=== PATIENT | female | born 1985 | race Caucasian/White ===

== ENCOUNTER 2016-10-25 16:25 | Inpatient (IN) | payer OTHER ==
[2016-10-25] MEDS ORDERED: TUBERCULIN PPD 5 TU/0.1ML SYRINGE (IN PATIENT USE ONLY) ID ONE (17:00)
[2016-10-25] MEDS ORDERED: DINOPROSTONE 10 MG VAGINAL SUPPOSITORY VG ONE (17:00)
[2016-10-25 17:31] VITALS: BMI 32.8
[2016-10-25] MEDS ORDERED: BUTORPHANOL TARTRATE 1 MG/ML VIAL IVPB ONE (18:09)
[2016-10-25] MEDS ORDERED: PROMETHAZINE HCL 25 MG/1 ML VIAL IVPUSH ONE (18:09)
--- NOTE | 2016-10-25 18:28 | HP ---
Past Medical History - Admission Chief Complaint: Here for labor induction. 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 Weeks Gestation by Dates: 39.1 ...EDC by Sono: 10/31/16 Infectious Disease: No: HIV, MRSA, STD's Psych: No: Bipolar, Depression - Past Surgical History Hx Myomectomy: No Hx Transabdominal Cerclage: No Additional Surgical History: lasik eye surgery - Smoking History Smoking history: Never smoked Have you smoked in the past 12 months: No - Alcohol/Substance Use Hx Alcohol Use: No - Social History Usual Living Arrangement: Yes: With Spouse ADL: Independent History of Recent Travel: No Home Medications - Allergies Allergies/Adverse Reactions: Allergies Allergy/AdvReac Type Severity Reaction Status Date / Time No Known Allergies Allergy Verified 10/25/16 16:43 - Home Medications Home Medications: Ambulatory Orders Vitamins (Sjr) - 1 tab PO DAILY 10/25/16 Review of Systems - Review of Systems Constitutional: reports: No Symptoms Eyes: reports: No Symptoms HENT: reports: No Symptoms Neck: reports: No Symptoms Cardiovascular: reports: No Symptoms Respiratory: reports: No Symptoms Gastrointestinal: reports: No Symptoms Genitourinary: reports: No Symptoms Breasts: reports: No Symptoms Reported Musculoskeletal: reports: No Symptoms Integumentary: reports: No Symptoms Neurological: reports: No Symptoms Endocrine: reports: No Symptoms Hematology/Lymphatic: reports: No Symptoms Psychiatric: reports: No Symptoms Physical Exam - Maternity Vital Signs: Vital Signs Temperature 98.7 F 10/25/16 17:10 Pulse Rate 112 H 10/25/16 17:10 Respiratory Rate 20 10/25/16 17:10 Blood Pressure 109/68 10/25/16 17:10 O2 Sat by Pulse Oximetry (%) Constitutional: Yes: Well Nourished, No Distress, Calm Eyes: Yes: Conjunctiva Clear, EOM Intact HENT: Yes: Atraumatic, Normocephalic Neck: Yes: Supple, Trachea Midline Cardiovascular: Yes: Regular Rate and Rhythm Lungs: Clear to auscultation - Abdominal Exam/OB Fundal Height: 39 Number of Fetuses: Single Presentation: Vertex Contractions: No Monitor Mode: External Heart Rate (range): 145 Category: I Accelerations: Uniform Decelerations: None - Vaginal Exam/OB Dilatation (cm): 0.5 Effacement (%): 70 Amniotic Membrane Status: Intact Presentation: Vertex/Position Station: -2 - Physical Exam Psychiatric: Yes: Alert, Oriented Hemorrhage Risk Assessment - Risk Factors Medium Risk Factors: Yes: None High Risk Factors: Yes: None Risk Score: 1 Risk Level: Medium Risk Problem List - Problems (1) Term Code(s): Z34.80 - ENCOUNTER FOR SUPRVSN OF NORMAL , UNSP TRIMESTER Assessment/Plan 31 y/o with SIUP at 39.1 weeks gestation here for elective labor induction - FHTS cat 1 - elective labor induction - cervidil placed at this time for cervical ripening. For re evaluation 12 hours for possible pitocin - GBS negative
[2016-10-25 18:48] LABS: BASOPHIL 0.4 % (0-2.0); EOSINOPHIL 0.7 % (0-4.5); MCH 28.7 pg (25.7-33.7); MCHC 32.9 g/dl (32.0-36.0); MEAN CELL VOLUME 87.3 fl (80-96); MEAN PLT VOLUME 10.1 fl (7.5-11.1); PLATELET COUNT 204 K/MM3 (134-434); RDW 13.6 % (11.6-15.6); WHITE BLOOD COUNT 13.7 K/mm3 (4.0-10.0)
[2016-10-25 19:11] LABS: ACTIVATED PTT 30.7 SECONDS (26.9-34.4)
[2016-10-25 19:20] LABS: CALCIUM 8.8 mg/dL (8.5-10.1); COCKROFT - GAULT 170.816; CREATININE 0.6 mg/dL (0.55-1.02)
[2016-10-26] MEDS ORDERED: OXYTOCIN 15 UNITS/ LR 250 ML 250 ML IVPB SCH ×2 (07:45→21:15)
[2016-10-26] MEDS ORDERED: DINOPROSTONE 10 MG VAGINAL SUPPOSITORY VG ONE (07:59)
--- NOTE | 2016-10-26 07:59 | PN ---
Ante-Partal Exam - Subjective Vital Signs: Vital Signs Temperature 98.3 F 10/26/16 04:00 Pulse Rate 99 H 10/26/16 06:00 Respiratory Rate 18 10/26/16 06:00 Blood Pressure 107/71 10/26/16 06:00 O2 Sat by Pulse Oximetry (%) Bleeding: No Headache: No Visual changes: No Right upper quadrant pain: No - Contractions Contractions: Yes Regularity: Irregular Intensity: Mild - Exam during Labor Heart Rate: 135 Variability: Moderate Category: I Monitor Accelerations: Present Monitor Decelerations: None Exam: Vaginal Dilatation (cm): 1 Effacement (%): 70 Amniotic Membrane Status: Intact Presentation: Vertex Station: -2 - Assessment/Plan Assessment/Plan: 31 y/o with SIUP at 39.2 weeks, elective labor induction - AFVSS - FHTS cat 1 - elective IOL, s/p cervidil overnight, minimal cervical change. Pt not feeling pain/contractions. Second cervidil placed this a.m. Will start pitocin this evening - GBS negative
[2016-10-26] MEDS ORDERED: DEXTROSE 5%-LACTATED RINGERS 1,000 ML IV ONE (23:15)
[2016-10-27] MEDS ORDERED: ELECTROLYTE-148 SOLN 1,000 ML IV SCH (08:00)
[2016-10-27] MEDS: PRENATAL VITAMINS W/ FOLIC ACID TABLET (FP) PO SCH (10:26)
[2016-10-27] MEDS ORDERED: FENTANYL/BUPIVACAINE/NS/PF - PCEA - 50 ML DISP.SYRIN EP SCH ×2 (11:00→11:02)
--- NOTE | 2016-10-27 13:26 | PN ---
Delivery - Delivery Vaginal Delivery: No Problems, Spontaneous Episiotomy/Laceration: 1st degree EBL (cc): 300 Delivery, Single - Stages of Labor Date of Delivery: 10/27/16 Time of Delivery: 13:06 Date Placenta Delivered: 10/27/16 Time Placenta Delivered: 13:14 Placenta: Yes: Spontaneous - Condition of Infant Temper Mill Roller/Log Buyer Present: No Gender: Male Position: Right, OA - 1 Minute Total Score: 9 5 Minutes Total Score: 9 - [place] Feeding Plan Initial Plan: Exclusive throughout hospitalization Remarks - Remarks Remarks: Uncomplicated of baby boy from DERREK position tight nuchal cord noted after delivery of head, clamped and cut at perineum anterior shoulder (left) delivered with ease along with posterior shoulder and remainder of placenta delivered with 3VC and in tact, spontaneously 1st degree laceration noted repaired with 2-0 chromic in usual fashion EBL 300cc sponge count correct after delivery baby stable and to well baby nursery mom stable
[2016-10-27] MEDS ORDERED: BISACODYL 10 MG SUPP.RECT RC PRN (13:27)
[2016-10-27] MEDS ORDERED: IBUPROFEN 600 MG TABLET (FP) PO PRN (13:27)
[2016-10-27] MEDS ORDERED: BENZOCAINE 28 GM HEMORRHOIDAL OINTMENT TP PRN (13:27)
[2016-10-27] MEDS ORDERED: BENZOCAINE 20% 57 GM BOTTLE TP PRN (13:27)
[2016-10-27] MEDS ORDERED: METHYLERGONOVINE MALEATE 0.2 MG/1 ML AMP IM PRN (13:27)
[2016-10-27] MEDS ORDERED: ACETAMINOPHEN 325 MG TABLET (FP) PO PRN (13:27)
[2016-10-27] MEDS ORDERED: WITCH HAZEL 50% (TUCKS) 40 PAD/JAR PAD TP PRN (13:27)
[2016-10-27] MEDS ORDERED: OXYTOCIN 20 UNITS in 0.9% NS 1,000 ML IV SCH (13:30)
[2016-10-27] MEDS ORDERED: D5W-LR W/ 20 UNITS OXYTOCIN 1,000 ML IV SCH (14:45)
--- NOTE | 2016-10-28 07:34 | PN ---
Post Progress Note - Subjective Subjective: 31 yo Para 1, status post vaginal delivery, seen and evaluated. Doing well, no complaints. Type of Delivery: Vital Signs: Vital Signs Temperature 97.7 F 10/28/16 06:00 Pulse Rate 89 10/28/16 06:00 Respiratory Rate 20 10/28/16 06:00 Blood Pressure 112/73 10/28/16 06:00 O2 Sat by Pulse Oximetry (%) 100 10/27/16 12:15 Breast Exam: Yes: Soft Uterus: Yes: Fundus Firm Abdomen/GI: Yes: Abdomen soft, Tolerating PO Lochia: Yes: Rubra Lochia, amount: Moderate Extremities: Yes: Calves non-tender Perineum: Yes: Intact Activity: Ambulating - Labs Labs: CBC WBC 13.7 K/mm3 (4.0-10.0) H 10/25/16 18:00 RBC 3.81 M/mm3 (3.60-5.2) 10/25/16 18:00 Hgb 10.9 GM/dL (10.7-15.3) 10/25/16 18:00 Hct 33.2 % (32.4-45.2) 10/25/16 18:00 MCV 87.3 fl (80-96) 10/25/16 18:00 MCHC 32.9 g/dl (32.0-36.0) 10/25/16 18:00 RDW 13.6 % (11.6-15.6) 10/25/16 18:00 Plt Count 204 K/MM3 (134-434) 10/25/16 18:00 MPV 10.1 fl (7.5-11.1) 10/25/16 18:00 Neutrophils % 79.0 % (42.8-82.8) 10/25/16 18:00 Lymphocytes % 10.2 % (8-40) 10/25/16 18:00 Monocytes % 9.7 % (3.8-10.2) 10/25/16 18:00 Eosinophils % 0.7 % (0-4.5) 10/25/16 18:00 Basophils % 0.4 % (0-2.0) 10/25/16 18:00 Assessment/Plan Status post vaginal delivery Stable Continue routine care
[2016-10-28 08:31] LABS: BASOPHIL 0.3 % (0-2.0); EOSINOPHIL 0.5 % (0-4.5); MCH 28.8 pg (25.7-33.7); MCHC 33.2 g/dl (32.0-36.0); MEAN CELL VOLUME 86.9 fl (80-96); MEAN PLT VOLUME 9.7 fl (7.5-11.1); NEUTROPHILS 77.9 % (42.8-82.8); PLATELET COUNT 178 K/MM3 (134-434); RDW 13.9 % (11.6-15.6); WHITE BLOOD COUNT 18.8 K/mm3 (4.0-10.0)
[2016-10-28] MEDS: PRENATAL VITAMINS W/ FOLIC ACID TABLET (FP) PO SCH (10:00)
[2016-10-28] MEDS ORDERED: DIPHTH,PERTUSS(ACELL),TET 0.5 ML DISP.SYRIN IM ONE (10:00)
[2016-10-28] MEDS ORDERED: SENNOSIDES/DOCUSATE COMBO (SENNA PLUS) TABLET (UD) PO PRN (22:00)
[2016-10-29] MEDS: PRENATAL VITAMINS W/ FOLIC ACID TABLET (FP) PO SCH (11:05)
[2016-10-29 11:58] VITALS: BP 126/68; PULSE 92; TEMP 98.4
--- NOTE | 2016-10-31 01:49 | DS ---
Physical Exam-WELDER FITTER Vital Signs: Vital Signs Temperature 98.4 F 10/29/16 10:00 Pulse Rate 92 H 10/29/16 10:00 Respiratory Rate 20 10/29/16 10:00 Blood Pressure 126/68 10/29/16 10:00 O2 Sat by Pulse Oximetry (%) 100 10/27/16 12:15 Constitutional: Yes: Well Nourished, No Distress Neck: Yes: WNL Cardiovascular: Yes: WNL Respiratory: Yes: WNL Gastrointestinal: Yes: WNL, Normal Bowel Sounds External Genitalia: Yes: Normal ....Post : Yes: Uterus firm, Uterus non-tender Breast(s): Yes: Gynecomastia Musculoskeletal: Yes: WNL Extremities: Yes: WNL Edema: No Neurological: Yes: WNL, Alert, Oriented Labs: CBC, BMP 10/28/16 07:20 10/25/16 18:00 Delivery - Delivery Vaginal Delivery: No Problems, Spontaneous Type of Anesthesia: Epidural Episiotomy/Laceration: 1st degree EBL (cc): 300 Delivery, Single - Stages of Labor Date 1st Stage Initiatied: 10/27/16 Time 1st Stage Initiated: 02:00 Date 2nd Stage Initiated: 10/27/16 Time 2nd Stage Initiated: 12:20 Date of Delivery: 10/27/16 Time of Delivery: 13:06 Time Placenta Delivered: 13:14 Placenta: Yes: Spontaneous - Condition of Electronics Supervisor/Eap Counselor Present: No Gender: Male Weight: 6 lb 6 oz Position: Left, OA Total Hours ROM (Hrs/Mins): 49min. - 1 Minute Total Score: 9 5 Minutes Total Score: 9 - Feeding Plan Initial Plan: Exclusive throughout hospitalization Discharge Summary Reason For Visit: INDUCTION OF LABOR Procedures: Principal: Normal Delivery Hospital Course: Unremarkable Condition: Good - Instructions Diet, Activity, Other Instructions: Regular diet No douching, no sexual intercourse x 6 weeks F/U with MD in six weeks Disposition: HOME - Home Medications Comprehensive Discharge Medication List: Ambulatory Orders Vitamins (Sjr) - 1 tab PO DAILY 10/25/16 Ibuprofen [Motrin -] 600 mg PO QID PRN #28 tablet 10/28/16
== END 2016-10-29 18:00 | disposition home or self-care (01) | DRG 560 ==
LOC: JLDR 16:25 → J3W 10-27 15:25
PROVIDERS: ADMIT Obstetrics & Gynecology; ATTEND Obstetrics & Gynecology
PROC: 3E0P7GC Introduction of Other Therapeutic Substance into Female Reproductive, Via Natural or Artificial Opening (ICD-10-PCS; 2016-10-25)
PROC: 10E0XZZ Delivery of Products of Conception, External Approach (ICD-10-PCS; principal; 2016-10-27)
DX: O70.0 First degree perineal laceration during delivery (principal); Z3A.39 39 weeks gestation of pregnancy; Z37.0 Single live birth
CPT/HCPCS: 36415; 59409; 80048; 85025; 85610; 85730; 86593; 86850; 86900; 86901; 90715

== ENCOUNTER 2018-10-16 18:30 | Inpatient (IN) | payer OTHER ==
[2018-10-16] MEDS ORDERED: ELECTROLYTE-148 SOLN 500 ML IV SCH (19:00)
--- NOTE | 2018-10-16 19:35 | HP ---
Past Medical History - Admission History of Present Illness: 33 y/o P1 female with SIUP at 40.2 weeks here for IOL. No complaints. 3-4cm dilated in office, membranes swept today. uncomplicated. GBS negative, HIV negative. in 2017. 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 Cardiovascular: No: HTN Pulmonary: No: Asthma Gastrointestinal: No: GERD Hepatobiliary: No: Hepatitis B, Hepatitis C Renal/: No: UTI Reproductive: No: Ectopic , Fibroids, PID ...Para: 1 Heme/Onc: No: Anemia Infectious Disease: No: HIV, MRSA, STD's Psych: No: Anxiety, Bipolar, Depression Endocrine: No: Diabetes Mellitus, Hyperthyroidism - Past Surgical History Past Surgical History: Yes: None Hx Myomectomy: No Hx Transabdominal Cerclage: No - Smoking History Smoking history: Never smoked Have you smoked in the past 12 months: No - Alcohol/Substance Use Hx Alcohol Use: No - Social History ADL: Independent History of Recent Travel: No Home Medications - Allergies Allergies/Adverse Reactions: Allergies Allergy/AdvReac Type Severity Reaction Status Date / Time No Known Allergies Allergy Verified 10/25/16 16:43 - Home Medications Home Medications: Ambulatory Orders Vitamins (Sjr) - 1 tab PO DAILY 10/25/16 Ibuprofen [Motrin -] 600 mg PO QID PRN #28 tablet 10/28/16 Review of Systems - Review of Systems Constitutional: reports: No Symptoms Eyes: reports: No Symptoms HENT: reports: No Symptoms Neck: reports: No Symptoms Cardiovascular: reports: No Symptoms Respiratory: reports: No Symptoms Gastrointestinal: reports: No Symptoms Genitourinary: reports: No Symptoms Breasts: reports: No Symptoms Reported Musculoskeletal: reports: No Symptoms Integumentary: reports: No Symptoms Neurological: reports: No Symptoms Endocrine: reports: No Symptoms Hematology/Lymphatic: reports: No Symptoms Psychiatric: reports: No Symptoms Physical Exam - Maternity Constitutional: Yes: Well Nourished, No Distress, Calm Eyes: Yes: Conjunctiva Clear, EOM Intact HENT: Yes: Atraumatic, Normocephalic Neck: Yes: Trachea Midline Cardiovascular: Yes: Regular Rate and Rhythm Lungs: Clear to auscultation - Abdominal Exam/OB Number of Fetuses: Single Presentation: Vertex Contractions: No Category: I Accelerations: Uniform Decelerations: None - Vaginal Exam/OB Dilatation (cm): 3.5 Effacement (%): 70 Amniotic Membrane Status: Intact Presentation: Vertex/Position - Physical Exam Psychiatric: Yes: Alert, Oriented Hemorrhage Risk Assessment - Risk Factors Medium Risk Factors: Yes: None High Risk Factors: Yes: None Risk Score: 1 Risk Level: Medium Risk Problem List - Problems (1) Term Code(s): Z34.80 - ENCOUNTER FOR SUPRVSN OF NORMAL , UNSP TRIMESTER Assessment/Plan 33 y/o P1 female with SIUP at 40.2 weeks here for elective IOL FHTs cat 1 for AROM/Pit GBS negative anticipate
[2018-10-16] MEDS: ELECTROLYTE-148 SOLN 1,000 ML IV SCH ×2 (19:45→23:00)
[2018-10-16] MEDS ORDERED: OXYTOCIN 30 UNITS in 0.9% NS 30 UNIT/500 ML INFUS.BAG IVPB SCH (19:45)
[2018-10-16 20:09] VITALS: BMI 34.9
[2018-10-16 20:24] LABS: BASO % 0.3 % (0-2.0); EOS % 0.9 % (0-4.5); HEMATOCRIT 36.5 % (32.4-45.2); HEMOGLOBIN 11.8 GM/dL (10.7-15.3); LYMPH % 16.7 % (8-40); MCH 28.5 pg (25.7-33.7); MCHC 32.3 g/dl (32.0-36.0); MEAN CELL VOLUME 88.3 fl (80-96); MEAN PLT VOLUME 10.5 fl (7.5-11.1); MONO % 8.4 % (3.8-10.2); NEUT % 73.7 % (42.8-82.8); PLATELET COUNT 207 K/MM3 (134-434); RBC 4.13 M/mm3 (3.60-5.2); RDW 14.4 % (11.6-15.6); WHITE BLOOD COUNT 12.4 K/mm3 (4.0-10.0)
[2018-10-16] MEDS ORDERED: OXYTOCIN 20 UNITS in 0.9% NS 20 UNIT/1,000 ML INFUS.BAG IV ONE (20:26)
[2018-10-16 20:56] LABS: CALCIUM 9.2 mg/dL (8.5-10.1); CREATININE 0.6 mg/dL (0.55-1.3); INR 0.92 (0.83-1.09); POTASSIUM 4.2 mmol/L (3.5-5.1); PROTHROMBIN TIME (PATIENT) 10.9 SEC (9.7-13.0)
[2018-10-16 20:59] LABS: ACTIVATED PTT 30.9 SECONDS (25.2-36.5)
[2018-10-16] MEDS ORDERED: TUBERCULIN PPD 5 TU/0.1ML SYRINGE (IN PATIENT USE ONLY) ID ONE (21:45)
[2018-10-16] MEDS ORDERED: FENTANYL/BUPIVACAINE/NS/PF - PCEA - 50 ML DISP.SYRIN EP ONE (21:47)
[2018-10-16] MEDS ORDERED: BUPIVACAINE HCL/PF 0.25% (2.5MG/ML) 10 ML VIAL ONE (21:48)
[2018-10-16] MEDS ORDERED: LIDO 2%/EPI 1:200000 PRESRVFRE (20 ML SDVIAL) ONE (21:48)
[2018-10-16] MEDS ORDERED: NALOXONE HCL 0.4 MG/ML VIAL IVPUSH PRN (22:12)
[2018-10-16] MEDS ORDERED: FENTANYL/BUPIVACAINE/NS/PF - PCEA - 50 ML DISP.SYRIN EP SCH (22:15)
[2018-10-17] MEDS ORDERED: OXYTOCIN 20 UNITS in 0.9% NS 20 UNIT/1,000 ML INFUS.BAG IV ONE (00:17)
[2018-10-17] MEDS ORDERED: METHYLERGONOVINE MALEATE 0.2 MG/1 ML AMP IM PRN (00:24)
[2018-10-17] MEDS ORDERED: WITCH HAZEL 50% (TUCKS) 40 PAD/JAR PAD TP PRN (00:24)
[2018-10-17] MEDS ORDERED: BISACODYL 10 MG SUPP.RECT RC PRN (00:24)
[2018-10-17] MEDS ORDERED: BENZOCAINE 20% 57 GM BOTTLE TP PRN (00:24)
[2018-10-17] MEDS ORDERED: BENZOCAINE 28 GM HEMORRHOIDAL OINTMENT TP PRN (00:24)
[2018-10-17] MEDS ORDERED: OXYTOCIN 20 UNITS in 0.9% NS 20 UNIT/1,000 ML INFUS.BAG IV SCH (00:30)
--- NOTE | 2018-10-17 01:04 | PN ---
Delivery - Delivery Vaginal Delivery: No Problems Type of Anesthesia: Epidural Episiotomy/Laceration: 1st degree (single figure of 8 suture placed) EBL (cc): 250 Delivery, Single - Stages of Labor Date of Delivery: 10/17/18 Time of Delivery: 12:38 Date Placenta Delivered: 10/17/18 Time Placenta Delivered: 12:42 Placenta: Yes: Spontaneous - Condition of Obstetrician And Gynaecologist/Floral Clerk Present: No Gender: Female Position: Left, OA - 1 Minute Total Score: 9 5 Minutes Total Score: 9 - Feeding Plan Initial Plan: Exclusive throughout hospitalization Remarks - Remarks Remarks: Uncomplicated of baby girl across 1st degree laceration from DERREK position anterior and posterior shoulders delivered with ease along with remainder of cord clamped and cut cord blood collection for personal cord banking completed placenta delivered with 3VC, in tact 1st degree repaired with single figure of 8 2-0 chromic suture excellent hemostasis needle and sponge count correct mom stable baby to well baby nursery pitocin infusing after delivery
[2018-10-17] MEDS: PRENATAL VITAMINS W/ FOLIC ACID TABLET (FP) PO SCH (09:43)
[2018-10-17] MEDS: IBUPROFEN 600 MG TABLET (FP) PO PRN ×2 (17:03→21:04)
[2018-10-17] MEDS: ACETAMINOPHEN 325 MG TABLET (FP) PO PRN ×2 (17:04→21:05)
[2018-10-17] MEDS: ELECTROLYTE-148 SOLN 1,000 ML IV SCH (19:45)
--- NOTE | 2018-10-18 02:17 | PN ---
Post Progress Note - Subjective Subjective: 33 yo Para 1, status post vaginal delivery, seen and evaluated. Doing well. Post Day: 1 Type of Delivery: Vital Signs: Vital Signs Temperature 98.3 F 10/17/18 21:39 Pulse Rate 79 10/17/18 21:39 Respiratory Rate 18 10/17/18 21:39 Blood Pressure 115/68 10/17/18 21:39 O2 Sat by Pulse Oximetry (%) 96 10/17/18 00:27 Breast Exam: Yes: Soft Uterus: Yes: Fundus Firm Abdomen/GI: Yes: Abdomen soft, Tolerating PO Lochia: Yes: Rubra Lochia, amount: Moderate Extremities: Yes: Calves non-tender Activity: Ambulating - Labs Labs: CBC WBC 12.4 K/mm3 (4.0-10.0) H 10/16/18 20:00 RBC 4.13 M/mm3 (3.60-5.2) 10/16/18 20:00 Hgb 11.8 GM/dL (10.7-15.3) 10/16/18 20:00 Hct 36.5 % (32.4-45.2) 10/16/18 20:00 MCV 88.3 fl (80-96) 10/16/18 20:00 MCH 28.5 pg (25.7-33.7) 10/16/18 20:00 MCHC 32.3 g/dl (32.0-36.0) 10/16/18 20:00 RDW 14.4 % (11.6-15.6) 10/16/18 20:00 Plt Count 207 K/MM3 (134-434) 10/16/18 20:00 MPV 10.5 fl (7.5-11.1) 10/16/18 20:00 Absolute Neuts (auto) 9.1 K/mm3 (1.5-8.0) H 10/16/18 20:00 Neutrophils % 73.7 % (42.8-82.8) 10/16/18 20:00 Lymphocytes % 16.7 % (8-40) D 10/16/18 20:00 Monocytes % 8.4 % (3.8-10.2) 10/16/18 20:00 Eosinophils % 0.9 % (0-4.5) 10/16/18 20:00 Basophils % 0.3 % (0-2.0) 10/16/18 20:00 Nucleated RBC % 0 % (0-0) 10/16/18 20:00 Assessment/Plan Status post vaginal delivery Stable Continue routine care
[2018-10-18 08:09] LABS: BASO % 0.2 % (0-2.0); EOS % 0.9 % (0-4.5); HEMATOCRIT 34.9 % (32.4-45.2); HEMOGLOBIN 11.4 GM/dL (10.7-15.3); LYMPH % 14.6 % (8-40); MCH 28.9 pg (25.7-33.7); MCHC 32.7 g/dl (32.0-36.0); MEAN CELL VOLUME 88.5 fl (80-96); MEAN PLT VOLUME 10.3 fl (7.5-11.1); MONO % 8.7 % (3.8-10.2); NEUT % 75.6 % (42.8-82.8); PLATELET COUNT 163 K/MM3 (134-434); RBC 3.94 M/mm3 (3.60-5.2); RDW 14.8 % (11.6-15.6); WHITE BLOOD COUNT 14.6 K/mm3 (4.0-10.0)
[2018-10-18] MEDS: IBUPROFEN 600 MG TABLET (FP) PO PRN ×2 (09:55→21:02)
[2018-10-18] MEDS: ACETAMINOPHEN 325 MG TABLET (FP) PO PRN ×2 (09:56→21:01)
[2018-10-18] MEDS: PRENATAL VITAMINS W/ FOLIC ACID TABLET (FP) PO SCH (09:57)
[2018-10-18] MEDS ORDERED: DIPHTH,PERTUSS(ACELL),TET 0.5 ML DISP.SYRIN IM ONE (10:00)
[2018-10-18] MEDS ORDERED: SENNOSIDES/DOCUSATE COMBO (SENNA PLUS) TABLET (UD) PO PRN (22:00)
[2018-10-19 08:40] VITALS: BP 105/75; PULSE 72; TEMP 98
[2018-10-19] MEDS: PRENATAL VITAMINS W/ FOLIC ACID TABLET (FP) PO SCH (09:59)
== END 2018-10-19 11:00 | disposition home or self-care (01) | DRG 560 ==
LOC: JLDR 18:30 → J3W 10-17 04:14
PROVIDERS: ADMIT Obstetrics & Gynecology; ATTEND Obstetrics & Gynecology
PROC: 10E0XZZ Delivery of Products of Conception, External Approach (ICD-10-PCS; principal; 2018-10-17)
PROC: 0HQ9XZZ Repair Perineum Skin, External Approach (ICD-10-PCS; 2018-10-17)
PROC: 0W8NXZZ Division of Female Perineum, External Approach (ICD-10-PCS; 2018-10-17)
DX: O70.0 First degree perineal laceration during delivery (principal); Z3A.40 40 weeks gestation of pregnancy; Z37.0 Single live birth
CPT/HCPCS: 36415; 59409; 80048; 85025; 85610; 85730; 86593; 86850; 86900; 86901; 90715